=== PATIENT | male | born 1960 | race Caucasian/White ===

== ENCOUNTER 2018-12-10 06:55 | Day surgery (SDC) | payer OTHER ==
[~2018-12-10] VITALS: Ht 180.3 cm; Wt 95.7 kg
[2018-12-10] VITALS (12 sets, daily range): BP systolic 114–131; BP diastolic 68–82; PULSE 56–69; RESP 8–18; Ht 180.3 cm; Wt 95.7 kg
[2018-12-10] MEDS ORDERED: CEFAZOLIN 2 GM/50 ML (PMX) 50 ML IVPB ONE (07:30)
[2018-12-10] MEDS ORDERED: SOD CHLORIDE 0.9% 1,000 ML IV ONE (07:30)
[2018-12-10] MEDS ORDERED: ATOR20TA38 PO (07:40)
[2018-12-10] MEDS ORDERED: TERB250T13 PO (07:41)
[2018-12-10] MEDS ORDERED: OMEP40CA6 PO (07:41)
[2018-12-10] MEDS ORDERED: VARE1TAB20 PO (07:43)
[2018-12-10] MEDS ORDERED: POLYMYXIN/BACITRACIN 1L IRRIG ONE (10:00)
--- NOTE | 2018-12-10 10:02 | PREAC ---
Date/Time of Note Date/Time of Note DATE: 12/10/18 TIME: 10:01 Anesthesia Eval and Record Evaluation Time Pre-Procedure Interview DATE: 12/10/18 TIME: 10:01 Age 58 Sex male NPO: 8 hrs Preoperative diagnosis umbillical hernia Planned procedure umbillical hernia repair Past Medical History Past Medical History: Includes Cardio: HTN, Dyslipidemia GI: GERD Surgery & Anesthesia Issues No known issue Meds Anticoagulation: No Beta Patricia within 24 hr: No Reason Beta Patricia not given: Pt. not on B-Patricia Reported Medications Varenicline Tartrate (Chantix) 1 Mg Tablet, 1 MG PO BID, TAB 12/10/18 Omeprazole* (Omeprazole*) 40 Mg Capsule.dr, 40 MG PO DAILY, #30 CAP 12/10/18 Terbinafine Hcl* (Terbinafine Hcl*) 250 Mg Tablet, 250 MG PO DAILY, TAB 12/10/18 Atorvastatin Calcium* (Atorvastatin Calcium*) 20 Mg Tablet, 20 MG PO QHS, #30 TAB 12/10/18 Current Medications Sodium Chloride 1,000 ml @ 75 mls/hr [id number] ONCE IV Last administered on 12/10/18at 08:01; Admin Dose 75 MLS/HR; Start 12/10/18 at 07:30; Stop 12/10/18 at 20:49 Meds reviewed: Yes Allergies Coded Allergies: No Known Allergy (Unverified , 12/10/18) Allergies Reviewed: Yes Labs/Studies Labs Reviewed: Reviewed by anesthesiologist test: N/A Studies: ECG Pre-procedure Exam Last vitals Vital Signs Date Temp Pulse Resp B/P (MAP) Pulse Ox O2 O2 Flow FiO2 Time Delivery Rate 12/10/18 98.1 65 16 114/73 98 Room Air 08:05 (87) Airway: Adequate mouth opening, Adequate thyromental dist Mallampati: Mallampati II Teeth: Normal Lung: Normal Heart: Normal ASA Physical Status ASA physical status: 2 Emergency: None Planned Anesthetic General/MAC: ETT Nerve block: TAP (bilateral) Pre-operative Attestations Prior to commencing anesthesia and surgery, the patient was re-evaluated, there was verification of: *The patient's identity *The results of appropriate recent lab work and preoperative vital signs *The above evaluation not changing prior to induction *Anesthetic plan, risk benefits, alternative and complications discussed with patient/family; questions answered; patient/family understands, accepts and wishes to proceed. DENTON DRUMMOND Dec 10, 2018 10:02
--- NOTE | 2018-12-10 10:06 | HPN ---
Date/Time of Note Date/Time of Note DATE: 12/10/18 TIME: 10:06 Interval H&P Admission Note Pt. seen H&P reviewed: No system changes KIRSTEN WILD MD Dec 10, 2018 10:06
[2018-12-10] MEDS ORDERED: ROPIVACAINE 0.5 % 30 ML VIAL ONE (10:14)
[2018-12-10] MEDS ORDERED: FENTAnyl 50 MCG/ML VIAL ONE (10:14)
[2018-12-10] MEDS ORDERED: HYDROmorphONE 1 MG/5 ML IV SYRINGE IV PRN ×3 (10:30)
[2018-12-10] MEDS ORDERED: FENTAnyl 50 MCG/ML VIAL IV PRN ×3 (10:30)
[2018-12-10] MEDS ORDERED: METOCLOPRAMIDE 10 MG INJ IV PRN (10:30)
[2018-12-10] MEDS ORDERED: DIPHENHYDRAMINE 50 MG INJ IV PRN (10:30)
[2018-12-10] MEDS ORDERED: MEPERIDINE 25 MG INJ IV PRN (10:30)
[2018-12-10] MEDS ORDERED: ALBUTEROL 0.083% (NEB) 2.5 MG/3 ML AMP HHN PRN (10:30)
[2018-12-10] MEDS ORDERED: LABETALOL HCL 20MG INJ IV PRN (10:30)
[2018-12-10] MEDS ORDERED: ONDANSETRON 4 MG INJ IV PRN ×2 (10:30→11:30)
[2018-12-10] MEDS ORDERED: BUPIVACAINE 0.25% (MPF) 30 ML INJ ONE (10:42)
[2018-12-10] MEDS ORDERED: PROPOFOL 20 ML ONE (10:51)
[2018-12-10] MEDS ORDERED: CEFAZOLIN 1 GM INJ ONE (10:51)
[2018-12-10] MEDS ORDERED: ROCURONIUM 50 MG INJ ONE (10:51)
[2018-12-10] MEDS ORDERED: LIDOCAINE 100 MG SYRINGE ONE (10:51)
[2018-12-10] MEDS ORDERED: SUCCINYLCHOLINE CHLORIDE 100 MG/5 ML SYG IV ONE (10:51)
[2018-12-10] MEDS ORDERED: SUGAMMADEX SODIUM 200 MG/2 ML VIAL IV ONE (11:17)
--- NOTE | 2018-12-10 11:27 | OPR ---
Date/Time of Note Date/Time of Note DATE: 12/10/18 TIME: 11:21 Operative Report Procedure Date: Dec 10, 2018 Preoperative Diagnosis Ventral/umbilical hernia Postoperative Diagnosis Ventral/umbilical hernia Operation/Procedure Performed 1. Open repair of ventral/umbilical hernia 2. Implantation of biological mesh Surgeon see signature line [employer] None Anesthesia Type: general Anesthesiologist: DENTON DRUMMOND Estimated Blood Loss: minimal Transfusion none Specimen Hernia contents Grafts/Implants Phasix ST mesh 7 x 10cm, cut to 4cm round Complications none Pt Condition Post Procedure: stable Disposition: PACU Indications The patient is an overweight 58-year-old male who presented to the office with a painful bulge of the midline ventral abdominal wall involving the umbilicus. He had clinical signs and symptoms of a ventral/umbilical hernia chronically incarcerated with fat. He was scheduled for elective repair to prevent sequelae of hernia disease which include, but are not limited to: Incarceration and strangulation. All risks and benefits of the procedure including, but not limited to: Wound infection, excessive bleeding, postoperative seroma/hematoma formation, injury to intra-abdominal organs, hernia recurrence, chronic pain, etc. were all explained to the patient in full detail. 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 We discussed the impact of this on his hernia repair. We discussed that given the chronic drainage it is best not to use a prosthetic mesh for fear of mesh infection and complications. We discussed the use of a biological mesh along with possible risk of recurrence. Patient fully understood the above, agreed, and wished to proceed with the procedure. Informed consent was obtained. Procedure Description Patient was brought to the operating room and placed supine on the operating table. Bilateral sequential compression devices were placed on both lower extremities. A dose of broad-spectrum perioperative intravenous antibiotics was given. After the induction of smooth general anesthesia the patient's abdomen was prepped and draped in standard surgical fashion. After performance of the surgical timeout 0.25% Marcaine was injected around the area of the incision. An infraumbilical semicircular incision was then made using a 15 blade scalpel. It was carried down through the skin and the dermis. Blunt dissection was then done using Penny clamps to the level of the anterior rectus fascia. The hernia was identified, containing chronically incarcerated fat, and involving the umbilicus. The umbilicus was then encircled using a Penny clamp. The umbilicus was then transected at its base and the sac dissected off of the umbilicus. The hernia contents were transected and passed off the field as specimen. The hernia defect was approximately 1 cm in maximal dimension. A 7 x 10 cm piece of Phasix ST biologic mesh was then cut and fashioned to 4 cm round in diameter. It was then used to repair the hernia defect in an underlay fashion. The mesh was secured in place using interrupted 2-0 PDS sutures. With the repair complete it was inspected and noted to be tension-free and hemostatic. The wound cavity was then irrigated with more antibiotic irrigation. The fascia was then reapproximated over the mesh using a #1 PDS suture in [id number] fashion. The umbilicus was then tacked back down to the fascia using interrupted 3-0 Vicryl suture. Incision was then closed in layers using interrupted 3-0 Vicryl sutures for the dermal layer. The skin was reapproximated using a running 4-0 Monocryl suture in subcuticular fashion. Incision was cleaned and Dermabond was applied as well as an abdominal binder. The patient was awoken from anesthesia and transported to the recovery room in stable condition. All counts were correct at the end of the case 2. KIRSTEN WILD MD Dec 10, 2018 11:27
[2018-12-10] MEDS ORDERED: KETOROLAC 30 MG INJ IV PRN (11:30)
[2018-12-10] MEDS ORDERED: morphine 2 MG INJ IV PRN (11:30)
[2018-12-10] MEDS ORDERED: HYDROCODONE/APAP (5/325) TAB PO PRN ×2 (11:30)
--- NOTE | 2018-12-10 16:59 | PAC ---
Date/Time of Note Date/Time of Note DATE: 12/10/18 TIME: 16:59 Post-Anesthesia Notes Post-Anesthesia Note Last documented vital signs Vital Signs Date Temp Pulse Resp B/P (MAP) Pulse Ox O2 O2 Flow FiO2 Time Delivery Rate 12/10/18 98.1 14:33 12/10/18 67 18 119/78 96 Room Air 12:20 (92) 12/10/18 2.0 11:38 Activity: WNL Respiratory function: WNL Cardiovascular function: WNL Mental status: Baseline Pain reasonably controlled: Yes Hydration appropriate: Yes Nausea/Vomiting absent: Yes DENTON DRUMMOND Dec 10, 2018 16:59
[2018-12-10] MEDS ORDERED: IBUPROFEN 600 MG TAB PO PRN (21:00)
== END 2018-12-10 12:54 | disposition home or self-care (01) ==
LOC: SDS 06:55
PROVIDERS: ATTEND Surgery
DX: K42.9 Umbilical hernia without obstruction or gangrene (principal); K43.9 Ventral hernia without obstruction or gangrene; I10 Essential (primary) hypertension; E78.5 Hyperlipidemia, unspecified
CPT/HCPCS: 49585; 88302; J0690; J2001; J2795; J3010; Z7512; Z7610